=== PATIENT | female | born 1980 | race Caucasian/White ===

== ENCOUNTER → 2016-04-18 | Outpatient (CLI) | payer OTHER ==
[~2016-04-18] MED LIST: MTR600X PO; OXYC-57 PO; PRENTAB26 PO
[2016-04-18 18:33] LABS: GTGD 50 Grams
== END | disposition home or self-care (01) ==
LOC: C.LAB1850 15:14
PROVIDERS: ATTEND Obstetrics & Gynecology
DX: O30.043 Twin pregnancy, dichorionic/diamniotic, third trimester (principal)

== ENCOUNTER → 2016-04-18 | Outpatient (CLI) | payer OTHER ==
[2016-04-18 17:07] LABS: MANUAL MICROSCOPIC REQUIRED? YES; REVIEW REQ? NO; URINE APPEARANCE SL CLOUDY (CLEAR); URINE BILIRUBIN NEG (NEG); URINE COLOR YELLOW; URINE NITRITE NEG (NEG); URINE SPECIFIC GRAVITY 1.025 (1.000-1.030); UROBILINOGEN NEG (NEG)
[2016-04-18 17:09] LABS: URINE BACTERIA 1+ (NEG); URINE MUCUS PRESENT (NONE PRSENT); URINE RBC 0-4 /hpf (0-4)
== END | disposition home or self-care (01) ==
LOC: C.LABSPEC 15:50
PROVIDERS: ATTEND Obstetrics & Gynecology
DX: O30.043 Twin pregnancy, dichorionic/diamniotic, third trimester (principal)

== ENCOUNTER 2016-05-16 14:10 | Outpatient (CLI) | payer OTHER ==
[~2016-05-16] VITALS: Ht 165.1 cm; Wt 79.4 kg
[2016-05-16] MEDS ORDERED: PRENTAB26 PO (15:01)
[2016-05-16 15:07] VITALS: Ht 165.1 cm; Wt 79.4 kg
== END 2016-05-16 14:49 | disposition home or self-care (01) ==
LOC: C.LD 14:10 → C.OPB 14:10
PROVIDERS: ATTEND Obstetrics & Gynecology
DX: O30.043 Twin pregnancy, dichorionic/diamniotic, third trimester (principal); Z3A.32 32 weeks gestation of pregnancy

== ENCOUNTER 2016-05-23 14:11 | Observation (INO) | payer OTHER ==
[~2016-05-23] VITALS: Ht 167.6 cm; Wt 80.0 kg
[~2016-05-23 14:11] MED LIST changes: -MTR600X PO; -OXYC-57 PO
[2016-05-23] MEDS: LACTATED RINGER'S 1000ML 1,000 ML IV SCH ×2 (14:35→15:30)
[2016-05-23] MEDS ORDERED: IV FLUIDS COMPLETED PRN (15:45)
[2016-05-23 16:20] VITALS: Ht 167.6 cm; Wt 80.0 kg
[2016-05-23 16:47] LABS: URINE APPEARANCE CLEAR (CLEAR); URINE BILIRUBIN NEG (NEG); URINE COLOR YELLOW; URINE NITRITE NEG (NEG); URINE SPECIFIC GRAVITY 1.011 (1.000-1.030); UROBILINOGEN NEG (NEG)
[2016-05-23 16:50] LABS: MANUAL MICROSCOPIC REQUIRED? NO; REVIEW REQ? NO
--- NOTE | 2016-05-31 14:44 | DISCHARGE SUMMARY ---
REASON FOR ADMISSION: contractions. COURSE OF CARE: Ms. Das was admitted for a twin intrauterine at 33 weeks gestational age after being seen in the office and complaining of painful regular cramping. She was observed on labor and delivery while a fibronectin test was run which ultimately resulted as negative. She was noted to have ketonuria and was likely dehydrated, which the patient felt was consistent with her expectations after working during the day without much if any oral fluid intake. She was given IV hydration. Her cramping calmed significantly, no cervical change was demonstrated over the course of several hours and the patient was ultimately discharged to home.
== END 2016-05-23 16:30 | disposition home or self-care (01) ==
LOC: C.OPB 14:11 → C.LD 14:11 → C.OPB 14:33 → C.LD 14:33
PROVIDERS: ADMIT Obstetrics & Gynecology; ATTEND Obstetrics & Gynecology
DX: O62.9 Abnormality of forces of labor, unspecified (principal); O30.003 Twin pregnancy, unspecified number of placenta and unspecified number of amniotic sacs, third trimester; Z3A.33 33 weeks gestation of pregnancy

== ENCOUNTER 2016-05-30 16:06 | Outpatient (CLI) | payer OTHER ==
--- NOTE | 2016-06-07 13:11 | EDITING REQUIRED CODING QUERY ---
DIAGNOSIS NEEDED To promote full compliance with coding requirements relating to patient care, physician participation is requested in all cases of bleach liquor maker uncertainty. Please assist us with the question(s) below: Coding Question: The patient received care in labor and delivery on 05/30/16 as noted within the record. Please document the diagnosis that is being addressed by the medication/treatment. Provider Response: DIAGNOSIS: Twins NST, 35 weeks Thank you for your assistance, Telma Becker - Marketing Professional
[2016-07-01] MEDS ORDERED: OXYC-57 PO (07:48)
[2016-07-01] MEDS ORDERED: MTR600X PO (07:48)
== END 2016-05-30 17:40 | disposition home or self-care (01) ==
LOC: C.OPB 16:06 → C.LD 16:06 → C.OPB 17:40
PROVIDERS: ATTEND Obstetrics & Gynecology
DX: O30.093 Twin pregnancy, unable to determine number of placenta and number of amniotic sacs, third trimester (principal); Z3A.35 35 weeks gestation of pregnancy

== ENCOUNTER 2016-06-08 16:37 | Outpatient (CLI) | payer OTHER ==
[~2016-06-08 16:37] MED LIST changes: -MTR600X PO; -OXYC-57 PO
== END 2016-06-08 17:17 | disposition home or self-care (01) ==
LOC: C.OPB 16:37 → C.LD 16:37 → C.OPB 17:17
PROVIDERS: ATTEND Obstetrics & Gynecology
DX: O30.043 Twin pregnancy, dichorionic/diamniotic, third trimester (principal); Z3A.35 35 weeks gestation of pregnancy

== ENCOUNTER → 2016-06-08 | Outpatient (CLI) | payer OTHER ==
[~2016-06-08] MED LIST changes: +MTR600X PO; +OXYC-57 PO
== END | disposition home or self-care (01) ==
LOC: C.LABSPEC 17:45
PROVIDERS: ATTEND Obstetrics & Gynecology
DX: O30.043 Twin pregnancy, dichorionic/diamniotic, third trimester (principal); Z3A.00 Weeks of gestation of pregnancy not specified

== ENCOUNTER 2016-06-13 19:21 | Outpatient (CLI) | payer OTHER | END 2016-06-13 19:42 | disposition home or self-care (01) | LOC: C.LD 19:21 → C.OPB 19:21 → C.LD 19:34 → C.OPB 19:42 | PROVIDERS: ATTEND Obstetrics & Gynecology | DX: O30.043 Twin pregnancy, dichorionic/diamniotic, third trimester (principal); Z3A.36 36 weeks gestation of pregnancy ==

== ENCOUNTER 2016-06-15 14:56 | Outpatient (CLI) | payer OTHER ==
[2016-06-15 15:55] LABS: HEMATOCRIT 34.2 % (37-47); MEAN CELL VOLUME 84.7 fL (80-100); MEAN CORPUSCULAR HGB CONC 34.2 g/dl (32-36); MEAN PLATELET VOLUME 11.2 fL (7.4-10.4); PLATELET COUNT 232 K/uL (130-400); RED BLOOD COUNT 4.04 M/uL (4.2-5.4); WHITE BLOOD COUNT 8.68 K/uL (4.8-10.8)
[2016-06-15 16:24] LABS: ALT/SGPT 19 U/L (12-78); AST/SGOT 18 U/L (15-37); BLOOD UREA NITROGEN 8 mg/dl (7-18); BUN/CREATININE RATIO 12.5 (10-20); CALCIUM 8.7 mg/dl (8.5-10.1); CARBON DIOXIDE 23 mmol/L (21-32); CHLORIDE 108 mmol/L (98-107); CREATININE 0.64 mg/dl (0.60-1.20); GLUCOSE 73 mg/dl (70-99); POTASSIUM 3.7 mmol/L (3.5-5.1); SODIUM 140 mmol/L (136-145)
[2016-06-15 16:30] LABS: ALB/GLOB RATIO 0.6 (0.9-2); ALKALINE PHOSPHATASE 195 U/L (45-117); URIC ACID 5.5 mg/dl (2.6-7.2)
[2016-06-15 17:48] LABS: URINE PROTIEN/CREAT RATIO 0.1 (0-0.2); URINE TOTAL PROTEIN 16.7 mg/dl (0-11.9)
== END 2016-06-15 16:58 | disposition home or self-care (01) ==
LOC: C.OPB 14:56 → C.LD 14:56 → C.OPB 16:58
PROVIDERS: ATTEND Obstetrics & Gynecology
DX: O62.9 Abnormality of forces of labor, unspecified (principal); O12.13 Gestational proteinuria, third trimester; O99.89 Other specified diseases and conditions complicating pregnancy, childbirth and the puerperium; R03.0 Elevated blood-pressure reading, without diagnosis of hypertension; O30.043 Twin pregnancy, dichorionic/diamniotic, third trimester; Z3A.36 36 weeks gestation of pregnancy

== ENCOUNTER 2016-06-18 11:24 | Outpatient (CLI) | payer OTHER ==
[~2016-06-18 11:24] MED LIST changes: -MTR600X PO; -OXYC-57 PO
--- NOTE | 2016-06-26 11:15 | EDITING REQUIRED CODING QUERY ---
DIAGNOSIS NEEDED To promote full compliance with coding requirements relating to patient care, physician participation is requested in all cases of sewing machine operator paper bags uncertainty. Please assist us with the question(s) below: Coding Question: The patient received care in labor and delivery on 06/18/16 as noted within the record. Please document the diagnosis that is being addressed by the medication/treatment. Provider Response: DIAGNOSIS: Twin third trimester Nst x2 Thank you for your assistance, Telma Becker - Homicide Detective
== END 2016-06-18 13:30 | disposition home or self-care (01) ==
LOC: C.LD 11:24 → C.OPB 11:24
PROVIDERS: ATTEND Obstetrics & Gynecology
DX: O30.049 Twin pregnancy, dichorionic/diamniotic, unspecified trimester (principal); Z3A.36 36 weeks gestation of pregnancy

== ENCOUNTER → 2016-06-18 | Outpatient (CLI) | payer OTHER ==
[~2016-06-18] MED LIST changes: +MTR600X PO; +OXYC-57 PO
[2016-06-18 08:18] LABS: PATIENT HEIGHT 167.6 cm
[2016-06-18 12:21] LABS: URINE TOTAL PROTEIN 10.4 mg/dl (0-11.9)
[2016-06-18 12:57] LABS: CREATININE 0.65 mg/dl (0.6-1.2)
[2016-06-18 13:00] LABS: URINE TOTAL PROTEIN CALC 140.4 mg/24 hr (0-149.1)
== END | disposition home or self-care (01) ==
LOC: C.LABSPEC 07:05
PROVIDERS: ATTEND Obstetrics & Gynecology
DX: O13.3 Gestational [pregnancy-induced] hypertension without significant proteinuria, third trimester (principal); Z3A.00 Weeks of gestation of pregnancy not specified

== ENCOUNTER 2016-06-20 17:16 | Outpatient (CLI) | payer OTHER ==
[~2016-06-20] VITALS: Ht 167.6 cm; Wt 84.0 kg
[2016-06-20 17:54] VITALS: Ht 167.6 cm; Wt 84.0 kg
--- NOTE | 2016-06-26 11:50 | EDITING REQUIRED CODING QUERY ---
DIAGNOSIS NEEDED To promote full compliance with coding requirements relating to patient care, physician participation is requested in all cases of street commissioner uncertainty. Please assist us with the question(s) below: Coding Question: The patient received care in labor and delivery on 06/20/16 as noted within the record. Please document the diagnosis that is being addressed by the medication/treatment. Provider Response: DIAGNOSIS: Twin Thank you for your assistance, Telma Becker - Margarine Maker
== END 2016-06-20 17:57 | disposition home or self-care (01) ==
LOC: C.OPB 17:16 → C.LD 17:16 → C.OPB 17:57
PROVIDERS: ATTEND Obstetrics & Gynecology
DX: O30.043 Twin pregnancy, dichorionic/diamniotic, third trimester (principal); O09.513 Supervision of elderly primigravida, third trimester; Z3A.37 37 weeks gestation of pregnancy

== ENCOUNTER 2016-06-25 13:10 | Outpatient (CLI) | payer OTHER | END 2016-06-25 14:30 | disposition home or self-care (01) | LOC: C.OPB 13:10 → C.LD 13:10 → C.OPB 14:30 | PROVIDERS: ATTEND Obstetrics & Gynecology | DX: O30.043 Twin pregnancy, dichorionic/diamniotic, third trimester (principal); Z3A.38 38 weeks gestation of pregnancy ==

== ENCOUNTER 2016-06-28 01:04 | Inpatient (IN) | payer OTHER ==
[2016-06-27 10:08] VITALS: BMI 29.0
--- NOTE | 2016-06-27 10:22 | PAT Medication Instructions ---
Service Date June 27, 2016. Current Home Medication List Multivit/Min/Iron/Fol Ac/Pren ( Vitamin), 1 TAB PO DAILY Medication Instructions For Your Scheduled Surgery - Hold the following medications the morning of surgery: Multivit/Min/Iron/Fol Ac/Pren ( Vitamin), 1 TAB PO DAILY If you have any questions please call us at [phone] (Rosalva Larsen PA-C) or [phone] or [phone]
[2016-06-27 10:48] LABS: BASO % 0.1 %; BASO ABS # 0.01 K/uL (0-0.2); COMPLETE YES; EOS % 0.5 %; HEMATOCRIT 33.5 % (37-47); IG% 0.4 %; LYMPH % 19.8 %; LYMPH ABS # 1.47 K/uL (1.2-3.4); MEAN CORPUSCULAR HEMOGLOBIN 28.1 pg (25-34); MEAN CORPUSCULAR HGB CONC 33.4 g/dl (32-36); MEAN PLATELET VOLUME 11.7 fL (7.4-10.4); MONO % 7.4 %; NEUT % 71.8 %; PLATELET COUNT 171 K/uL (130-400); RED BLOOD COUNT 3.99 M/uL (4.2-5.4); WHITE BLOOD COUNT 7.41 K/uL (4.8-10.8)
--- NOTE | 2016-06-27 12:34 | HISTORY & PHYSICAL EXAMINATION ---
DATE OF ADMISSION: 06/28/2016 PREOPERATIVE DIAGNOSIS: Dichorionic/diamniotic twin intrauterine at 38 and 2/7th weeks. HISTORY OF PRESENT ILLNESS: Carlota is a 36-year-old white female 1, para 0 with an EDC of 07/10/2016 based on last menstrual period and first trimester ultrasound, who has been diagnosed with di/di twins. Her has essentially been uncomplicated. The twins have been growing well. She has had reactive nonstress test. She did have an episode of elevated blood pressure, but at about 36 weeks her workup for preeclampsia was negative. The patient has advanced maternal age and appears she declined her genetic testing. PAST OB AND COIL WINDER REPAIR HISTORY: This is the patient's first . ALLERGIES: CODEINE DERIVATIVES. MEDICATIONS: vitamin. PAST MEDICAL HISTORY: She is healthy, denying thyroid disease, asthma, heart disease, heart murmur, diabetes, kidney or liver problems. She had a chickenpox in the past. PAST SURGICAL HISTORY: Includes wisdom teeth removal. SOCIAL HISTORY: The patient denies tobacco, alcohol or drug use. She lives with her spouse. PHYSICAL EXAMINATION: GENERAL: This is a well-developed and well-nourished white female in no acute distress. VITAL SIGNS: Blood pressure 120/70 and weight 180 pounds. NECK: Supple without thyromegaly or lymphadenopathy. CHEST: Clear to auscultation bilaterally. CARDIOVASCULAR: Regular rate and rhythm without murmurs, gallops or rubs. BACK: Without costovertebral angle tenderness. ABDOMEN: Very gravid and nontender. EXTREMITIES: Showed 2+ pitting edema to the thigh. CERVIX: Deferred. On ultrasound, baby A, which is the left baby is in annita breech presentation and baby B, which is in the upper right quadrant, is transverse. LABORATORY DATA: O positive, antibody negative, Pap normal, rubella immune, RPR nonreactive, hepatitis B negative, HIV negative, and chlamydia and gonorrhea cultures negative. Glucose tolerance test x2 normal. GBS negative. ASSESSMENT: Carlota is a 36-year-old white female 1, para 0 with dichorionic/diamniotic twin at 38 and 2/7th weeks. She presents for section. The risks of the surgery were discussed with the patient including the risks of anesthesia, bleeding requiring transfusion, infection and poor wound healing, damage to surrounding structures including bowel, bladder, vessels, nerves and ureters with need for further surgery, hospitalization or intervention. We discussed the other risks of surgery including heart attack, blood clot, stroke or . Questions were asked and answered. Consent was reviewed and signed. Surgery is planned for June 28.
[~2016-06-28] VITALS: Ht 167.6 cm; Wt 83.0 kg
[2016-06-28] VITALS (23 sets, daily range): BP systolic 116–171; BP diastolic 74–93; PULSE 55–76; TEMP 36.3–36.9; O2SAT 95–99; Ht 167.6 cm; Wt 83.0 kg
[2016-06-28] MEDS ORDERED: OXYTOCIN INJ 10 UNITS/ML VIAL ONE (02:14)
[2016-06-28] MEDS ORDERED: FENTANYL CITRATE INJ 50 MCG/1 ML 2 ML VIAL ONE (02:14)
[2016-06-28] MEDS ORDERED: PHENYLEPHRINE HCL INJ 10 MG/ML VIAL ONE (02:14)
[2016-06-28] MEDS ORDERED: MoRPHine SULFATE PF 1 MG/ML 10 ML AMP/VIAL ONE (02:14)
[2016-06-28] MEDS ORDERED: ONDANSETRON INJ 2 MG/ML 2 ML VIAL ONE ×2 (02:14→03:26)
[2016-06-28] MEDS ORDERED: EpHEDrine SULFATE INJ 50 MG/ML AMP ONE (02:17)
--- NOTE | 2016-06-28 02:38 | History & Physical Bridge Note ---
H&P Re-Evaluation Bridge Note: I have examined the patient, reviewed the History & Physical and in the interval since the performance of the History & Physical I have noted the following changes of clinical significance: Patient with SROM, fluid clear, Cervix /-2, Pt consented for C/S, will proceed.
[2016-06-28] MEDS ORDERED: CITRIC ACID/SODIUM CITRATE 15 ML UDC PO STA (02:45)
[2016-06-28] MEDS ORDERED: CITRIC ACID/SODIUM CITRATE 15 ML UDC ONE (02:46)
[2016-06-28] MEDS ORDERED: LACTATED RINGER'S 1000ML 1,000 ML IV SCH ×4 (03:00→06:00)
[2016-06-28] MEDS ORDERED: DEXAMETHASONE SOD INJ 4 MG/ML VIAL ONE (03:27)
[2016-06-28] MEDS ORDERED: DC PCA PRN (03:30)
[2016-06-28] MEDS ORDERED: HYDROCORTISONE ACETATE 25 MG SUPP PR PRN (03:30)
[2016-06-28] MEDS ORDERED: SUPERCREAM 0.870 % 15GM JAR EXT PRN (03:30)
[2016-06-28] MEDS ORDERED: LANOLIN OINT EXT PRN ×2 (03:30)
[2016-06-28] MEDS ORDERED: DIPHTHERIA/TETANUS/PERTUSSIS 0.5 ML SYR/VIAL IM. ONE (03:30)
[2016-06-28] MEDS ORDERED: OXYTOCIN INJ 20 UNITS in LACTATED RINGER'S 1000ML 1,000 ML IV SCH (03:30)
[2016-06-28] MEDS ORDERED: BENZOCAINE 20% AER SPR 82.5 GM CAN EXT PRN (03:30)
--- NOTE | 2016-06-28 03:56 | [facility] Post Operative Brief Note ---
Immediate Operative Summary Operative Date June 28, 2016. Pre-Operative Diagnosis 1) TWIN 2) RUPTURE OF MEMBRANES 3) bREECH/VTX PRESENTATION Post-Operative Diagnosis SAME ABOVE Procedure(s) Performed PRIMARY CAESAREAN SECTION FOR TWIN GESTATION BABY A-4 BABY B [address] SABILLON Mosaic Layer Surgeon(s) DR PENNINGTON Estimated Blood Loss 800 Findings Viable twin gestation, baby A, delivered by annita breech, Apgars 8/9; weight 6lbs 5 oz, gasses pending, Baby B, delivered vtx, weight 6lbs 7 ozs, gasses pending, placenta delivered and sent for pathological evaluation, nml appearing tubes and ovaries bilaterally, posterior subserosal fibroids Fluids (cc crystalloids) 1200 Specimens 1) PLACENTA 2) cord gasses Drains Fitch to gravity Anesthesia Spinal Complication(s) None Disposition L&D
[2016-06-28] MEDS ORDERED: SODIUM CHLORIDE 0.9% 1000ML 1,000 ML IV PRN (04:06)
[2016-06-28] MEDS ORDERED: LACTATED RINGER'S 1000ML 500 ML IV PRN (04:06)
[2016-06-28] MEDS ORDERED: NALOXONE HCL INJ 0.08 MG in SYRINGE 1.8 ML IV PRN (04:06)
--- NOTE | 2016-06-28 04:09 | Anesthesiology Progress Note ---
Anesthesia Post Op Note Date & Time June 28, 2016 at 04:08 Notes Mental Status: alert / awake / arousable, participated in evaluation Pt Amnestic to Procedure: No (recall as expected) Nausea / Vomiting: adequately controlled Pain: adequately controlled Airway Patency, RR, SpO2: stable & adequate BP & HR: stable & adequate Hydration State: stable & adequate Neuraxial Anesthesia: was administered, sensory block is resolving Anesthetic Complications: no major complications apparent Pt had C/S under spinal. She's doing very well. Uneventful anesthetic course. Post-op vitals BP 148/74, HR 62, RR 18, SpO2 99% on RA, T 36.3.
[2016-06-28] MEDS ORDERED: MoRPHine SULFATE 2 MG/ML CARP IV PRN (04:15)
[2016-06-28] MEDS ORDERED: PROMETHAZINE HCL INJ 25 MG in SODIUM CHLORIDE 0.9% 50ML 50 ML IV PRN (04:15)
[2016-06-28] MEDS ORDERED: KETOROLAC TROMETHAMINE 30 MG/ML VIAL IV. PRN ×2 (04:15→21:00)
[2016-06-28] MEDS ORDERED: DC INTRASPINAL MORPHINE SCH (04:15)
[2016-06-28] MEDS ORDERED: NO NARCOTICS OR SEDATIVES SCH (04:15)
[2016-06-28] MEDS ORDERED: NALBUPHINE HCL INJ 10 MG/ML AMP IV PRN (04:15)
[2016-06-28] MEDS ORDERED: EpHEDrine SULFATE INJ 50 MG/ML AMP IV PRN (04:15)
[2016-06-28] MEDS ORDERED: ONDANSETRON INJ 2 MG/ML 2 ML VIAL IV PRN (04:15)
[2016-06-28] MEDS ORDERED: MEPERIDINE HCL 25 MG/ML CARP IV PRN (04:15)
[2016-06-28] MEDS ORDERED: DiphenhydrAMINE HCL 50 MG/ML VIAL IV PRN ×2 (04:15→20:00)
[2016-06-28] MEDS ORDERED: NALOXONE HCL 0.4 MG/1 ML VIAL/CARP IV PRN (04:15)
[2016-06-28] MEDS ORDERED: MoRPHine SULFATE PF 1 MG/ML 10 ML AMP/VIAL EPI PRN (04:15)
[2016-06-28] MEDS ORDERED: CEFAZOLIN 2000 MG/60 ML D5W IV SCH (06:00)
[2016-06-28] MEDS ORDERED: CITRIC ACID/SODIUM CITRATE 15 ML UDC PO SCH (06:00)
--- NOTE | 2016-06-28 07:33 | OPERATIVE REPORT ---
DATE OF OPERATION: 06/28/2016 PREOPERATIVE DIAGNOSES: 1. Twin . 2. Spontaneous rupture of membranes. 3. Breech vertex presentation. POSTOPERATIVE DIAGNOSES: 1. Same. 2. Posterior subserosal fibroids. PROCEDURE PERFORMED: Primary low cervical transverse section. SURGEON: Dr. Ramon. DETENTION OFFICER: Dr. Faiza Castro. ANESTHESIA: Spinal. FINDINGS: Viable twin gestation. Baby A delivered from a annita breech presentation, Apgars of 8 and 9 and a weight of 6 pounds 5 ounces. Baby B was delivered from a vertex presentation, a weight of 6 pounds 7 ounces, Apgars of 8 and 9. Cord gases pending. Subserosal posterior fibroids noted, normal appearing tubes and ovaries bilaterally. PROCEDURE IN DETAIL: The patient was taken to the operating room and after spinal anesthesia was placed in supine position and draped and prepped in the usual fashion. Pfannenstiel type incision was made. Underlying subcutaneous tissue was dissected down to the ventral abdominal fascia, which was nicked and opened in a horizontal manner. Preperitoneal fascia was dissected away until the peritoneal cavity was entered and opened in a vertical manner. Bladder blade was placed. Uterus was entered sharply and extended in a semilunar fashion manually for clear fluid. Baby A delivered from a annita breech presentation. Cord was clamped and cut and baby passed off to pediatrics who was in attendance for the delivery. Cord blood samples were obtained. Baby B delivered spontaneously from a vertex presentation. Cord was clamped and cut and baby passed off to pediatrics. Cord blood samples obtained. Cord gas samples obtained from both babies and then the placenta was delivered manually and sent for pathological evaluation. The uterus was exteriorized with description as above. The uterine cavity was wiped clean of any residual blood tissue and/or clot. The uterine incision was closed with 2 layers of 4-0 Vicryl, the first a running locking stitch, the second an imbricating stitch. Hemostasis achieved and the uterus returned to the pelvic cavity. Pericolic gutters were cleared bilaterally of blood tissue and/or clot. Sponge and needle count was correct. The rectus muscle was plicated in the midline with a running 2-0 Vicryl stitch. The fascia was closed laterally with a running 0 Vicryl suture. Subcutaneous tissue was irrigated with warm saline and the skin incision was closed with a 4-0 Monocryl subcuticular suture. Sterile dressing was applied and the patient was taken to the recovery room in satisfactory condition. I attest to the content of the Intraoperative Record and any orders documented therein. Any exceptio ns are noted below.
[2016-06-28] MEDS: SIMETHICONE 80 MG CHEW PO SCH ×4 (09:07→20:00)
[2016-06-28] MEDS: PRENATAL VITAMIN TAB PO SCH (09:07)
[2016-06-28] MEDS ORDERED: OXYCODONE/ACETAMINOPHEN 5-325 TAB PO PRN (21:00)
[2016-06-28] MEDS ORDERED: MEPERIDINE HCL 50 MG/ML CARP IV PRN ×2 (21:00)
[2016-06-28] MEDS: OXYCODONE/ACETAMINOPHEN 5-325 TAB PO PRN (21:23)
[2016-06-29 04:50] VITALS: BP 147/83; PULSE 71; TEMP 36.9; O2SAT 98
[2016-06-29 05:20] VITALS: BP 133/80
[2016-06-29] MEDS: IBUPROFEN 600 MG TAB PO PRN ×4 (05:25→21:43)
[2016-06-29 07:04] LABS: HEMATOCRIT 27.3 % (37-47); MEAN CELL VOLUME 85.6 fL (80-100); MEAN CORPUSCULAR HEMOGLOBIN 28.5 pg (25-34); MEAN CORPUSCULAR HGB CONC 33.3 g/dl (32-36); MEAN PLATELET VOLUME 11.3 fL (7.4-10.4); PLATELET COUNT 148 K/uL (130-400); RED BLOOD COUNT 3.19 M/uL (4.2-5.4); WHITE BLOOD COUNT 10.56 K/uL (4.8-10.8)
--- NOTE | 2016-06-29 07:22 | Progress Note ---
Subjective June 29, 2016. Subjective conversation w/ patient, physical exam, lab review Ambulation: ambulating normally Voiding: requires PRN straight cath, voiding difficulty Passing Gas: Yes Diet Tolerance: Regular Diet Lochia: Small Feeding Type: Breast Feeding Pain: improves with med Comment: Patient was seen at the bedside. No acute event overnight. Review of Systems Constitutional: No fever Respiratory: No cough, No shortness of breath Cardiac: No chest pain Abdomen: No nausea, No pain, No vomiting Female : No dysuria Denies headache Objective Vital Signs Date Time Temp Pulse Resp B/P Pulse Ox O2 Delivery O2 Flow Rate FiO2 06/29/16 05:20 133/80 06/29/16 04:50 36.9 71 18 147/83 98 Room Air 06/28/16 23:10 Room Air 06/28/16 23:10 36.8 71 16 122/78 95 Room Air 06/28/16 21:00 18 98 06/28/16 20:15 16 97 06/28/16 19:55 36.6 69 18 125/75 96 Room Air 06/28/16 19:15 18 96 06/28/16 18:15 18 96 06/28/16 17:15 16 97 06/28/16 16:35 96 Room Air 06/28/16 16:35 36.9 76 18 116/74 96 Room Air 06/28/16 16:15 18 96 06/28/16 15:15 18 96 06/28/16 14:15 16 96 06/28/16 13:30 16 98 06/28/16 13:15 16 98 06/28/16 12:15 16 98 06/28/16 11:55 36.3 58 14 152/91 97 Room Air 06/28/16 11:15 16 97 06/28/16 10:15 16 97 06/28/16 09:15 36.4 60 16 139/85 99 Room Air 06/28/16 09:15 16 98 06/28/16 08:15 36.5 55 16 147/81 99 Room Air 06/28/16 08:15 16 99 06/28/16 07:50 16 98 06/28/16 07:50 98 Room Air 06/28/16 07:30 36.3 60 16 157/93 98 Room Air Physical Exam General Appearance: WELL-APPEARING, WD/WN, NO APPARENT DISTRESS Respiratory/Chest: chest non-tender, lungs clear, normal breath sounds, no respiratory distress Cardiovascular: regular rate, rhythm Abdomen: normal bowel sounds, non tender, soft Fundus: Firm, Relation to Umbilicus (at the U) Incision Description: Clean, Dry & Intact Extremities: non-tender, no calf tenderness, + pedal edema (1+ b/l pedal edema) Laboratory Results Last 24 Hours Test 06/29/16 06:45 White Blood Count 10.56 K/uL Red Blood Count 3.19 M/uL Hemoglobin 9.1 g/dL Hematocrit 27.3 % Mean Corpuscular Volume 85.6 fL Mean Corpuscular Hemoglobin 28.5 pg Mean Corpuscular Hemoglobin Concent 33.3 g/dl Platelet Count 148 K/uL Mean Platelet Volume 11.3 fL RDW Standard Deviation 40.9 fL RDW Coefficient of Variation 13.3 % Medications Current Inpatient Medications Medications (Trade) Dose Ordered Sig/Shila Route Start Time Stop Time Status Last Admin Dose Admin Lactated Ringer's (Lr 1000ml) 1,000 ml @ 125 mls/hr Q8H IV 06/28/16 03:30 07/28/16 03:29 06/28/16 12:59 125 MLS/HR Ketorolac Tromethamine (Toradol Inj) 30 mg Q6H PRN IV. 06/28/16 21:00 07/03/16 20:59 Meperidine HCl (Demerol Inj) 50 mg Q4H PRN IV 06/28/16 21:00 07/12/16 20:59 Meperidine HCl (Demerol Inj) 75 mg Q4H PRN IV 06/28/16 21:00 07/12/16 20:59 Oxycodone/ Acetaminophen (Percocet 5-325mg Tab) 1 tab Q4H PRN PO 06/28/16 21:00 07/12/16 20:59 06/28/16 21:23 1 TAB Oxycodone/ Acetaminophen (Percocet 5-325mg Tab) 2 tab Q4H PRN PO 06/28/16 21:00 07/12/16 20:59 Ibuprofen (Motrin Tab) 600 mg Q4H PRN PO 06/28/16 03:30 07/28/16 03:29 06/29/16 05:25 600 MG Prenat Multivit/ Shopping Centre Manager/Iron/Folic Ac ( Vitamin Tab) 1 tab DAILY PO 06/28/16 08:00 07/28/16 07:59 06/28/16 09:07 1 TAB Cocaine HCl (Supercream 0.870% Cr) BID PRN EXT 06/28/16 03:30 07/12/16 03:29 Lanolin (Lanolin Oint) PRN PRN EXT 06/28/16 03:30 07/28/16 03:29 Hydrocortisone Acetate (Anusol Hc Supp) 25 mg BID PRN MO 06/28/16 03:30 07/28/16 03:29 Benzocaine (Dermoplast Aero Spr) 1 appln PRN PRN EXT 06/28/16 03:30 07/28/16 03:29 Simethicone (Mylicon Chew Tab) 80 mg QID PO 06/28/16 08:00 07/28/16 08:59 06/28/16 16:42 80 MG Diphenhydramine HCl (Benadryl Cap) 25 mg QID PRN PO 06/28/16 20:00 07/28/16 20:59 Diphenhydramine HCl (Benadryl Inj) 25 mg QID PRN IV 06/28/16 20:00 07/28/16 20:59 Morphine Sulfate (Duramorph Pf Inj) TODAY PRN EPI 06/28/16 04:15 Assessment and Plan Post-Op Day#: 1 Continue Routine Care: A/P: This is a 36 y/o female, , s/p . She is ambulating, having voiding difficulty. Plan: - Vitals signs are reviewed and WNL (Tmax 36.9 ) - Last Hgb is 9.2 - Blood type O+, GBS neg, Rubella Immune - Routine care - Encourage ambulation, monitor and control pain with medication as needed , continue with regular diet as tolerated and monitor lochia - Stool softeners and sitz bath recommended - Encourage breast feeding and educate about breast feeding Resident Physician Supervision Note: I interviewed and examined the patient. Discussed with Dr. Burkett and agree with findings and plan as documented in the note. Any exceptions or clarifications are listed here: Was unable to void and straight cath for 1200cc. Has tried again and not able. Do not want to wait 8 hours again. Plan cath with oropeza at 10 am(5 hrs), maintain overnight if large PVR. Documented By: Faiza Castro
[2016-06-29] MEDS: PRENATAL VITAMIN TAB PO SCH (07:33)
[2016-06-29] MEDS: SIMETHICONE 80 MG CHEW PO SCH ×4 (07:33→20:34)
[2016-06-29 07:47] LABS: BASO % 0.2 %; BASO ABS # 0.02 K/uL (0-0.2); COMPLETE YES; EOS % 0.3 %; IG% 0.5 %; LYMPH % 17.9 %; LYMPH ABS # 1.89 K/uL (1.2-3.4); MONO % 6.8 %; NEUT % 74.3 %
[2016-06-29 08:30] VITALS: BP 122/77; PULSE 74; TEMP 36.9; O2SAT 95
[2016-06-29] MEDS ORDERED: NURSING VERBAL MED ORDER ONE (12:45)
[2016-06-29] MEDS: OXYCODONE/ACETAMINOPHEN 5-325 TAB PO PRN ×2 (12:57→21:44)
[2016-06-29] MEDS: ONDANSETRON 8 MG TAB PO PRN ×2 (12:59→21:42)
[2016-06-29 15:45] VITALS: O2SAT 93
[2016-06-30] VITALS: BP 122/77; PULSE 71; TEMP 36.6
--- NOTE | 2016-06-30 06:44 | Progress Note ---
Subjective June 30, 2016. Subjective conversation w/ patient, physical exam, chart review Ambulation: ambulating normally Voiding: no voiding problems, requires PRN straight cath, voiding difficulty Passing Gas: Yes Diet Tolerance: Regular Diet Lochia: Moderate Feeding Type: Breast Feeding (with supplemental bottles now) Review of Systems Constitutional: No chills, No fever Respiratory: No cough Cardiac: No chest pain Abdomen: No nausea, No vomiting Objective Vital Signs Date Time Temp Pulse Resp B/P Pulse Ox O2 Delivery O2 Flow Rate FiO2 06/30/16 00:00 Room Air 06/30/16 00:00 36.6 71 16 122/77 Room Air 06/29/16 15:45 93 Room Air 06/29/16 08:30 36.9 74 18 122/77 95 Room Air 06/29/16 08:30 95 Room Air Physical Exam General Appearance: WELL-APPEARING, NO APPARENT DISTRESS Respiratory/Chest: chest non-tender, lungs clear, normal breath sounds, no respiratory distress, no accessory muscle use Cardiovascular: regular rate, rhythm, no gallop, no murmur Abdomen: non tender, soft Fundus: Firm Incision Description: Clean, Dry & Intact Extremities: no calf tenderness Laboratory Results Last 24 Hours Test 06/29/16 06:45 06/30/16 06:15 White Blood Count 10.56 K/uL Red Blood Count 3.19 M/uL Hemoglobin 9.1 g/dL 9.3 g/dL Hematocrit 27.3 % 28.0 % Mean Corpuscular Volume 85.6 fL Mean Corpuscular Hemoglobin 28.5 pg Mean Corpuscular Hemoglobin Concent 33.3 g/dl Platelet Count 148 K/uL Mean Platelet Volume 11.3 fL Neutrophils (%) (Auto) 74.3 % Lymphocytes (%) (Auto) 17.9 % Monocytes (%) (Auto) 6.8 % Eosinophils (%) (Auto) 0.3 % Basophils (%) (Auto) 0.2 % Neutrophils # (Auto) 7.85 K/uL Lymphocytes # (Auto) 1.89 K/uL Monocytes # (Auto) 0.72 K/uL Eosinophils # (Auto) 0.03 K/uL Basophils # (Auto) 0.02 K/uL RDW Standard Deviation 40.9 fL RDW Coefficient of Variation 13.3 % Immature Granulocyte % (Auto) 0.5 % Immature Granulocyte # (Auto) 0.05 K/uL Assessment and Plan Post-Op Day#: 2 Continue Routine Care: Recovering well from c/sec for twins. Wishes to stay until POD3 and go home tomorrow AM.
[2016-06-30 08:05] VITALS: BP 136/87; PULSE 71; TEMP 36.7; O2SAT 96
[2016-06-30] MEDS: ONDANSETRON 8 MG TAB PO PRN (08:18)
[2016-06-30] MEDS: PRENATAL VITAMIN TAB PO SCH (08:29)
[2016-06-30] MEDS: SIMETHICONE 80 MG CHEW PO SCH ×4 (08:29→20:45)
[2016-06-30] MEDS: OXYCODONE/ACETAMINOPHEN 5-325 TAB PO PRN (08:31)
[2016-06-30] MEDS: IBUPROFEN 600 MG TAB PO PRN ×4 (08:31→20:45)
[2016-06-30] MEDS: DOCUSATE SODIUM 100 MG CAP PO SCH ×2 (09:37→20:45)
[2016-06-30 15:30] VITALS: BP 121/78; PULSE 71; TEMP 36.4
[2016-06-30 23:35] VITALS: BP 129/76; PULSE 63; TEMP 36.6
[2016-07-01] MEDS: IBUPROFEN 600 MG TAB PO PRN ×2 (05:47→12:44)
[2016-07-01 07:15] VITALS: BP 135/85; PULSE 69; TEMP 36.6; O2SAT 99
[2016-07-01] MEDS ORDERED: OXYC-57 PO (07:48)
[2016-07-01] MEDS ORDERED: MTR600X PO (07:48)
--- NOTE | 2016-07-01 07:48 | Progress Note ---
Subjective July 01, 2016. Subjective conversation w/ patient, physical exam, chart review, lab review Ambulation: ambulating normally Voiding: no voiding problems Passing Gas: Yes Diet Tolerance: Regular Diet Lochia: Small Feeding Type: Breast Feeding Objective Vital Signs Date Time Temp Pulse Resp B/P Pulse Ox O2 Delivery O2 Flow Rate FiO2 06/30/16 23:35 36.6 63 18 129/76 Room Air 06/30/16 23:35 Room Air 06/30/16 15:30 36.4 71 20 121/78 Room Air 06/30/16 15:30 Room Air 06/30/16 08:05 36.7 71 16 136/87 96 Room Air 06/30/16 08:05 Room Air Physical Exam General Appearance: WELL-APPEARING Abdomen: non tender Fundus: Firm Incision Description: Clean, Dry & Intact Extremities: no calf tenderness Assessment and Plan Post-Op Day#: 3 Continue Routine Care: home
--- NOTE | 2016-07-01 07:49 | Discharge Instructions ---
Discharge Instructions Date of Service July 01, 2016. Admission Reason for Admission: TWINS Discharge Discharge Diagnosis / Problem: twins Discharge Goals Goal(s): Routine recovery after Activity Recommendations Activity Limitations: per Instructions/Follow-up section . Instructions / Follow-Up Instructions / Follow-Up ACTIVITY RECOMMENDATIONS: * Gradual return to full activity over the next 2-3 weeks. * No lifting - nothing heavier than baby over the next 2-3 weeks. * Do not engage in vigorous exercise, sexual activity or sports until cleared by your physician. * Do not drive or operate any motorized equipment until cleared by your physician. * You may shower/bathe daily. MEDICATIONS: For discomfort or pain, you may use Acetaminophen (Tylenol), Ibuprofen (Advil), or Naproxen (Aleve) following the package directions. For constipation you may use Colace following the package directions. BREAST CARE: If you are not breast feeding: * Wear a supportive bra 24 hours a day for one to two weeks. * Avoid stimulating your breasts and nipples as much as possible during the first few weeks after delivery. * When taking a shower, have the warm water hit your back, not breasts. * When your breasts feel full, apply ice packs. Usually three to four times a day helps ease the discomfort. * Take a mild pain medication (Tylenol / Motrin) when you are uncomfortable. If breast feeding: * Use breast milk to lubricate nipples. Lansinoh cream may be used for sore nipples. You do not need to remove cream prior to breast feeding. If using a different brand of cream, check the label for directions regarding removal of cream prior to nursing. * Wear a supportive bra. * If having problems with breasts or breast feeding, call a apprenticeship consultant or your health care provider. SPECIAL CARE INSTRUCTIONS: When you are discharged from the hospital, it is important for you to follow the instructions listed below: * During the first week at home, you should be able to care for yourself and your baby. In addition, the usual light household activities are encouraged. * Limit your activities to the way you feel. Do not try to clean the house or move furniture. Be sensible. * If you actively engage in sports and have done so up until the time of your delivery, you may resume these activities as soon as you feel able. This may take up to one month or even longer. Use good judgment. * Continue to take your vitamins for at least six weeks after the of your baby. * Your diet need not be limited unless you were on a special diet before your delivery. Breast-feeding mothers need around 2500 calories per day and at least 64-80 ounces of fluid per day (8 to 10 glasses). * You should eat foods from the four major food groups. Crash diets or fad diets are to be avoided. Eating lean meats, fresh fruits and vegetables, low-fat dairy products, high fiber foods and a regular exercise program, will help you get back to your pre- weight without putting your health at risk. * Constipation is sometimes a problem after delivery. Take a mild laxative as needed. If breast feeding, Milk of Magnesia is acceptable to use. You may use a suppository or Fleets enema. * A daily shower or tub bath is suggested. Wash incision daily with warm soapy water and pat dry. It doesn't need to be covered unless drainage is present. * A bloody vaginal discharge will usually continue until around four weeks . A small amount of bleeding may continue for as long as six weeks. Vaginal discharge changes from the bright red bleeding after delivery to pink then brownish and finally yellowish-pink before becoming white and disappearing. * Bleeding may increase with activity. Your first period may come in 4-8 weeks. If you are breast feeding, your period may be delayed even longer. * [place] (sex) can begin whenever both you and your partner feel comfortable and do not have any form of genital infection. It is recommended that you wait at least six weeks for internal and external healing to occur. If you have questions, please talk to your health care practitioner. A condom should be used to prevent infection and . * Foreplay, gentle intercourse and lubrication is very important the first several times to prevent pain. A water-based lubricant such as K-Y jelly or Astroglide may be used. * If you have RH negative blood and your baby is RH positive, you will receive RHOGAM by injection prior to discharge. The nurse will give you a card to keep with you that has the date and place that you received RHOGAM after delivery. * During your care, you had a Rubella screen done to check for the presence of rubella antibodies in your blood. If your test was negative, you will receive a Rubella vaccine prior to discharge. This vaccine may cause a fever, soreness at the injection site and flu-like symptoms. If these symptoms persist, notify your health care practitioner. is not advised for one month after a Rubella vaccine. * Verbalizes understanding of car seat law as reviewed with patient nursing. * Car Seat hand-out given and reviewed with patient by nursing. * Shaken baby information reviewed with patient by nursing. Call you doctor if: * Heavy bleeding (saturating several pads an hour) or passing clots the size of your fist. * A fever >101 degrees F (38.3 degrees C) on two occasions four hours apart and /or chills. * Unusual pain in the pelvic or vaginal areas. * Call the doctor for any increased redness, drainage or swelling around the incision and any pain unrelieved by prescribed pain medication. * "Baby Blues" lasting longer than two weeks. If you have any questions or concerns, call your health care practitioner at . FOLLOW UP VISIT: * Please call the office at to schedule a 6 week examination. It is important you keep this appointment. It is important for you to make arrangements for either yearly or twice yearly check-ups thereafter. Current Hospital Diet Patient's current hospital diet: Regular OB Diet Discharge Diet Recommended Diet: Regular OB Diet Procedures Procedures Performed: PRIMARY CAESAREAN SECTION FOR TWIN GESTATION BABY [id number] BABY B [id number] Pending Studies Studies pending at discharge: no Medical Emergencies . Who to Call and When: Medical Emergencies: If at any time you feel your situation is an emergency, please call 911 immediately. . Non-Emergent Contact Non-Emergency issues call your: Sign Manufacturer . . "Provider Documentation" section prepared by Bill Ramos. . VTE Core Measure Inpt VTE Proph given/why not?: Denise Bright, SCD's
[2016-07-01] MEDS: PRENATAL VITAMIN TAB PO SCH (08:54)
[2016-07-01] MEDS: SIMETHICONE 80 MG CHEW PO SCH ×2 (08:55→12:41)
[2016-07-01] MEDS: OXYCODONE/ACETAMINOPHEN 5-325 TAB PO PRN (08:55)
--- NOTE | 2016-07-01 09:51 | DISCHARGE SUMMARY ---
ADMITTING DIAGNOSES: 1. Complicated at 36+ weeks' gestational age. 2. Twin gestation, breech vertex presentation. 3. Spontaneous rupture of membranes. ADMISSION HISTORY: The patient is a 36-year-old 1, para 0 with an EDC of 10 July at 38+ weeks gestational age, who is admitted with twin gestation with spontaneous rupture of membranes. The patient states her membranes ruptured approximately 2 hours prior to admission. She described the fluid as clear with subsequent onset of contractions. The patient had been scheduled for primary section later this morning for a twin gestation with a breech vertex presentation. The patient has been followed with a twin protocol, showing a strong interval growth on ultrasounds as well as reassuring testing. ADMISSION PHYSICAL EXAMINATION: GENERAL: Showed a gravid female in no acute distress. VITAL SIGNS: Blood pressure 120/70 and weight of 180 pounds. HEENT: Unremarkable. NECK: Supple. LUNGS: Clear. HEART: With a regular rhythm and rate. ABDOMEN: Gravid with positive heart tones x2. Total estimated weight of 10 pounds. PELVIC: Showed the cervix to be fingertip, 50% and -2 with gross rupture. EXTREMITIES: Showed +2 to +3 pitting edema. NEUROLOGIC: Grossly intact. ADMISSION LABORATORY VALUES: Showed an H\T\H of 11.2 and 33.5. HOSPITAL COURSE: With the rupture of membranes and active contractions, the patient was thought to be in early labor and as such, section was indicated. The patient was taken to the operating room, where she underwent the above listed procedures. Operative findings showed a viable twin gestation. Baby A was delivered from a annita breech presentation with Apgars of 8 and 9 and a weight of 6 pounds 5 ounces. Baby B was delivered from a vertex presentation with a weight of 6 pounds 7 ounces, Apgars of 8 and 9. Subserosal posterior fibroids were noted with normal appearing tubes and ovaries bilaterally. Postoperatively, the patient did well. Fitch catheter was removed on the first postoperative day. H\T\H came back at 9.1 and 27.3. By the 3rd postoperative day, the patient was ambulating without difficulty and tolerating a regular diet. She was discharged home with the routine discharge instructions and the prescriptions for the medications as listed as above. She will follow up in the office for postoperative check, but as always she has been instructed to call with any questions, problems or difficulties.
[2016-07-01 15:05] VITALS: BP_DIAS 85; PULSE 69; TEMP 36.6
== END 2016-07-01 15:20 | disposition home or self-care (01) | DRG 765 ==
LOC: C.LD 01:41 → C.OBG 06:38 → EDSTATUS 14:33
PROVIDERS: ADMIT Obstetrics & Gynecology; ATTEND Obstetrics & Gynecology
PROC: 10D00Z1 Extraction of Products of Conception, Low, Open Approach (ICD-10-PCS; principal; 2016-06-28 08:15)
DX: O32.1XX0 Maternal care for breech presentation, not applicable or unspecified (principal); O30.043 Twin pregnancy, dichorionic/diamniotic, third trimester; O75.82 Onset (spontaneous) of labor after 37 completed weeks of gestation but before 39 completed weeks gestation, with delivery by (planned) cesarean section; O34.13 Maternal care for benign tumor of corpus uteri, third trimester; D25.2 Subserosal leiomyoma of uterus; Z37.2 Twins, both liveborn; Z3A.38 38 weeks gestation of pregnancy

== ENCOUNTER → 2017-05-29 | Outpatient (CLI) | payer OTHER ==
[~2017-05-29] MED LIST changes: +MTR600X PO; +OXYC-57 PO
[2017-05-29 17:24] LABS: BASO % 0.2 %; BASO ABS # 0.01 K/uL (0-0.2); EOS % 0.8 %; EOS ABS # 0.05 K/uL (0-0.5); HEMOGLOBIN 12.3 g/dL (12.0-16.0); IG# 0.01 K/uL (0.00-0.02); LYMPH % 25.8 %; LYMPH ABS # 1.56 K/uL (1.2-3.4); MEAN CELL VOLUME 82.8 fL (80-100); MEAN CORPUSCULAR HEMOGLOBIN 28.3 pg (25-34); MEAN CORPUSCULAR HGB CONC 34.2 g/dl (32-36); MEAN PLATELET VOLUME 10.5 fL (7.4-10.4); MONO % 6.3 %; MONO ABS # 0.38 K/uL (0.11-0.59); NEUT % 66.7 %; NEUT ABS # 4.03 K/uL (1.4-6.5); PLATELET COUNT 242 K/uL (130-400); RED CELL DISTRIBUTION WIDTH CV 12.5 % (11.5-14.5); RED CELL DISTRIBUTION WIDTH SD 37.6 fL (36.4-46.3); WHITE BLOOD COUNT 6.04 K/uL (4.8-10.8)
== END | disposition home or self-care (01) ==
LOC: C.LAB1850 16:02
PROVIDERS: ATTEND Obstetrics & Gynecology
DX: O09.521 Supervision of elderly multigravida, first trimester (principal); Z3A.00 Weeks of gestation of pregnancy not specified

== ENCOUNTER → 2017-07-10 | Outpatient (CLI) | payer OTHER | END | disposition home or self-care (01) | LOC: C.LAB1850 16:34 | PROVIDERS: ATTEND Obstetrics & Gynecology | DX: O09.522 Supervision of elderly multigravida, second trimester (principal) ==

== ENCOUNTER → 2017-10-11 | Outpatient (CLI) | payer OTHER ==
[2017-10-11 14:15] LABS: HEMATOCRIT 30.9 % (37-47); HEMOGLOBIN 10.6 g/dL (12.0-16.0)
== END | disposition home or self-care (01) ==
LOC: C.LAB1850 12:53
PROVIDERS: ATTEND Obstetrics & Gynecology
DX: O09.523 Supervision of elderly multigravida, third trimester (principal); Z3A.00 Weeks of gestation of pregnancy not specified

== ENCOUNTER 2019-07-17 05:40 | Inpatient (IN) ==
--- NOTE | 2019-07-14 13:52 | History & Physical Report ---
Date of Service July 14, 2019 Assessment & Plan (1) Supervision of elderly multigravida: (2) Previous delivery affecting , antepartum: The risks, benefits, and alternatives to the surgery have been discussed. Mother benefits will be delivery of the infant, the risks are bleeding, infection, inadvertent injury to bowel or bladder, readmission or reoperation. Patient understands this permit has been signed she wishes to proceed. (3) Admission for sterilization: The risks, benefits, and alternatives of surgery have been discussed. While the benefits will be permanent surgical sterilization, risk are bleeding, infection, inadvertent injury to internal organs requiring additional surgery and treatment, regret, and failure of the procedure itself. Failure rate quoted at 1-3%. Patient understands, the permit been signed and she wishes to proceed. History of Present Illness Chief Complaint: Repeat section with tubal ligation Primary Care Provider: NO PCP The patient is a 39-year-old 3 para 2002, with an EDC of 23 July at 39 weeks gestational age who was admitted for repeat section with bilateral tubal ligation. Patient's EDC was established by LMP and confirmed by first-trimester ultrasound. The patient has had 2 previous sections. The patient has had a benign course. Laboratory values for the show blood type of O positive, antibody negative, rubella immune, hepatitis B negative, she had a negative cell free DNA screen, she had a-1 hour Glucola x2, negative 3rd trimester it strep culture. The patient adamantly desires no further childbearing capacity. She understands that there are reversible forms of contraception available and wishes to have a bilateral tubal ligation performed. Allergies Allergy/AdvReac Type Severity Reaction Status Date / Time codeine AdvReac Mild GI UPSET Verified 07/14/19 13:35 Home Medications Home Medications Medication Instructions Recorded Confirmed Type Multi 1 tab PO DAILY 12/12/17 07/14/19 History Patient History Medical History (Updated 07/14/19 @ 13:52 by Emil Ramon Jr, MD, FACOG) Advanced maternal age in multigravida hemorrhage WITH 2ND Varicella Surgical History (Updated 07/14/19 @ 13:39 by Patricia Vazquez RN) History of anesthesia reaction REQUIRES WARMING BLANKETS (SHIVERING ALL OVER) AND NAUSEA/VOMITTING History of section X 2 [place] teeth removed Social History (Updated 12/24/18 @ 15:13 by Bre Marquez) Preferred Language: Yoruba Communication Ability: Effective Performance Reporter Required: No Beliefs That Will Affect Care: None marital status: marital status details: Roberto Das (36) [phone] Current Living Situation: Family current occupational status: employed current occupation: Physician [employer] Feels Safe at Home: Yes Smoking Status: Never smoker Second Hand Exposure: No ; Hx Alcohol Use: No Hx Substance Use: No Physical Exam Constitutional: WD/WN, vitals as above Neck: trachea midline, no thyromegaly Respiratory: normal respiratory effort, lungs clear to auscultation Cardiovascular: RRR, no murmur, no edema Extremities: no calf tenderness Gastrointestinal (Abdomen): Gravid, vertex, (+) FHT's; EFW 8 lbs Skin: no lesions Psychiatric: A+Ox3, euthymic affect Genitourinary: deferred Lymphatic: no lymphadenopathy Coding Level of Care Code None Diagnoses Supervision of elderly multigravida O09.529 Previous delivery affecting , antepartum O34.219 Admission for sterilization Z30.2
--- NOTE | 2019-07-14 14:35 | Communication Note ---
Date of Service: July 14, 2019 Travel assessment/history reviewed - low risk at this time - will be reviewed the morning of surgery. No preop covid testing done.
[2019-07-17] MEDS ORDERED: SODIUM CHLORIDE 0.9% 250 ML IV PRN (05:44)
[2019-07-17] MEDS ORDERED: CITRIC ACID/SODIUM CITRATE 15 ML UDC PO SCH (06:00)
[2019-07-17] MEDS ORDERED: LACTATED RINGER'S 1,000 ML IV SCH ×2 (06:00→08:45)
[2019-07-17] MEDS ORDERED: CEFAZOLIN 2,000 MG in SYRINGE 0 ML IV SCH (06:00)
[2019-07-17 06:36] LABS: Basophils # (auto) 0.02 K/uL (0-0.2); Basophils % (auto) 0.2 %; Eosinophils # (auto) 0.05 K/uL (0-0.5); Eosinophils % (auto) 0.6 %; Hemoglobin 10.4 g/dL (12.0-16.0); Immature Granulocytes # (auto) 0.04 K/uL (0.00-0.02); Immature Granulocytes % (auto) 0.5 %; Lymphocytes # (auto) 1.85 K/uL (1.2-3.4); Lymphocytes % (auto) 22.8 %; Mean Corpuscular Hemoglobin 27.7 pg (25-34); Mean Corpuscular Volume 82.4 fL (80-100); Monocytes # (auto) 0.53 K/uL (0.11-0.59); Monocytes % (auto) 6.5 %; Neutrophils # (auto) 5.62 K/uL (1.4-6.5); Neutrophils % (auto) 69.4 %; Platelet Count 183 K/uL (130-400); RDW Coefficient of Variation 12.8 % (11.5-14.5); RDW Standard Deviation 38.1 fL (36.4-46.3); Red Blood Count 3.76 M/uL (4.2-5.4); White Blood Count 8.11 K/uL (4.8-10.8)
[2019-07-17 06:50] LABS: Mean Corpuscular Hgb Conc 33.5 g/dL (32-36)
--- NOTE | 2019-07-17 07:13 | History & Physical Bridge Note ---
Date of Service July 17, 2019 History & Physical Bridge Note I have examined the patient, reviewed the History & Physical and in the interval since the performance of the History & Physical I have noted the following changes of clinical significance: no changes noted
--- NOTE | 2019-07-17 07:23 | Anesthesiology Consultation ---
Date of Service July 17, 2019 Assessment & Plan Chart Review Chart Review: Acceptable Risk for Surgery and Patient NOT seen in Pre Admission Testing Consults Requested none ASA ASA2 Proposed Anesthesia Anesthesia Type: Spinal Risk / Benefits Reviewed With: PT / POA / Parent / Guardian, Accepts Plan and Informed Consent Obtained Additional Comments: no s/sx's of covid History Surgery Operation Date: 07/17/19 07:30 Proposed Procedures p Section - Emil Ramon Jr, MD, FACOG s with Bilateral Tubal Ligation - Emil Ramon Jr, MD, FACOG Height/Weight Height: 5 ft 6 in Weight: 77.111 kg Allergies Allergy/AdvReac Type Severity Reaction Status Date / Time codeine AdvReac Mild GI UPSET Verified 07/14/19 13:35 Medications Home Medications Medication Instructions Recorded Confirmed Last Taken Multi 1 tab PO DAILY 12/12/17 07/17/19 07/16/19 08:00 NPO Date Last Intake of Fluids: 07/16/19 Time Last Intake of Fluids: 21:00 Date Last Intake of Solids: 07/16/19 Time Last Intake of Solids: 15:00 Past Medical History Medical History Advanced maternal age in multigravida hemorrhage WITH 2ND Varicella Exercise / Class Metabolic Activity II 4-5 Yardwork/Stairs/Walk up hill Past Family History Family History Grandmother No problems noted. Grandfather No problems noted. Grandfather (Maternal) Diabetes Grandmother (Paternal) Diabetes Heart disease Grandfather (Paternal) Heart disease Father Hypertension Bicuspid aortic valve Mother Hypertension Breast cancer Past Surgical History Surgical History History of anesthesia reaction REQUIRES WARMING BLANKETS (SHIVERING ALL OVER) AND NAUSEA/VOMITTING History of section X 2 [place] teeth removed Past Anesthesia History No Hx of Anesthesia Complications and No Family Hx of Anesthesia Complications History of PONV No Hx of PONV and No Hx of Motion Sickness Social History Smoking Status: Never smoker Do You Dip or Chew Tobacco: No Hx Alcohol Use: No Hx Substance Use: No substance use type: does not use Physical Exam Vital Signs Last Vital Signs Temp 36.5 C 07/17/19 05:54 Pulse 88 07/17/19 05:50 Resp 16 07/17/19 05:54 BP 113/66 07/17/19 05:50 Constitutional + obese ENMT Mouth: no dentition abnormality Thyromental Distance: < 3.5 Finger Breadths Mallampati Class: II Neck normal visual inspection and trachea midline; neck extension not limited Respiratory normal respiratory effort Auscultation: lungs clear to auscultation bilaterally Cardiovascular Rate/Rhythm: regular rate and regular rhythm Heart Sounds: no murmur Vessels: no carotid bruit Musculoskeletal Spine: lumbar spine normal to inspection; normal cervical ROM Extremities: extremities normal to inspection Neurologic moves all extremities Motor/Sensory: no sensory deficit Psychiatric Orientation: alert and oriented x 3 Testing Laboratory Results 07/17/19 06:24
[2019-07-17] MEDS ORDERED: fentaNYL citrate 100 MCG/2 ML VIAL ONE (07:28)
[2019-07-17] MEDS ORDERED: MoRPHine SULFATE PF 1 MG/ML 10 ML AMP/VIAL ONE (07:28)
[2019-07-17] MEDS ORDERED: OXYTOCIN 10 UNITS/ML VIAL ONE (07:29)
[2019-07-17] MEDS ORDERED: ePHEDrine sulfate 50 MG/ML SYR ONE (08:16)
[2019-07-17] MEDS ORDERED: PHENYLEPHRINE 100MCG/ML 5ML SYR ONE (08:17)
[2019-07-17] MEDS ORDERED: ONDANSETRON INJ 2 MG/ML 2 ML VIAL ONE (08:28)
[2019-07-17] MEDS ORDERED: DEXAMETHASONE SOD INJ 4 MG/ML VIAL ONE (08:31)
[2019-07-17] MEDS ORDERED: SUPERCREAM 0.870% 15 GM JAR EXT PRN (08:35)
[2019-07-17] MEDS ORDERED: DIPHTHERIA/TETANUS/PERTUSSIS 0.5 ML SYR/VIAL IM ONE (08:35)
[2019-07-17] MEDS ORDERED: BENZOCAINE 20% AER SPR 82.5 GM CAN EXT PRN (08:35)
[2019-07-17] MEDS ORDERED: SENNA 8.6 MG TAB PO PRN (08:35)
[2019-07-17] MEDS ORDERED: MAGNESIUM HYDROXIDE SUSP 30 ML UDC PO PRN (08:35)
[2019-07-17] MEDS ORDERED: HYDROCORTISONE ACETATE 25 MG SUPP PR PRN (08:35)
[2019-07-17 08:49] LABS: Base Excess Cord Venous Blood -1.9 mEq/L (-7.7-1.9); Cord Venous Blood HCO3 24 mmol/L (18.4-26.8); Cord Venous Blood PCO2 44 mmHg (30.4-57.2); Cord Venous Blood PO2 26 mmHg (14.1-43.3); Cord Venous Blood pH 7.35 (7.20-7.44)
[2019-07-17 08:51] LABS: O2 Saturation Cord Venous Bld < 60.0 % (<68)
--- NOTE | 2019-07-17 08:51 | Post Operative Brief Note ---
PG Immediate Post Op with CF Date of Surgery July 17, 2019 Pre & Post Diagnosis Operation Date: 07/17/19 07:30 Pre-Op Diagnosis: 1. Term 2. Previous Caesarean Section 3. Desires Surgical Sterilization Post-Op Diagnosis: Same I identified the patient and participated in the time-out.: Yes Procedure Operation Date: 07/17/19 07:30 Actual Procedures p Section in LD; Bilateral Tubal Ligation, Repeat Lower Uterine Transevere Caesarean Section for the of a live boy infant(Bilateral) - Emil Ramon Jr, MD, FACOG Surgeon Emil Ramon Jr, MD, FACOG Medical Associate [place] Estimated Blood Loss 800 Findings See Below (viable male, Apgars 8/9; weight 7lbs 6 ozs, nml appearing tubes and ovaries bilaterally; bilateral tubal ligation) Specimens Specimen Description: 1. Placenta: 2. Cord Blood Obtained 3. Venous and Arterial Cord Blood Gases Obtained 4. Portions of Right and Left Fallopian Tubes Drains Fitch Catheter
[2019-07-17 08:53] LABS: Base Excess Cord Arterial Bld -3.6 mEq/L (-9-1.8); CO2 Cord Arterial Blood 51 mmHg (39.1-73.5); HCO3 Cord Arterial Blood 24 mmol/L (19.7-28.5); Oxygen Sat Cord Arterial Blood < 60.0 % (<60); PO2 Cord Arterial Blood 19 mmHg (4.1-31.7); pH Cord Arterial Blood 7.29 (7.1-7.38)
[2019-07-17] MEDS ORDERED: NALOXONE HCL 0.4 MG/1 ML VIAL/CARP IV PRN (08:59)
[2019-07-17] MEDS ORDERED: ONDANSETRON INJ 2 MG/ML 2 ML VIAL IV PRN (08:59)
[2019-07-17] MEDS ORDERED: MoRPHine SULFATE PF 1 MG/ML 10 ML AMP/VIAL INT SPINAL ONE (08:59)
[2019-07-17] MEDS ORDERED: ePHEDrine sulfate 50 MG/ML AMP IV PRN (08:59)
[2019-07-17] MEDS ORDERED: NALOXONE HCL 0.08 MG in SYRINGE 1.8 ML IV PRN (08:59)
[2019-07-17] MEDS ORDERED: NALOXONE HCL 1 MG in SODIUM CHLORIDE 0.9% 1000ML 1,000 ML IV PRN (08:59)
[2019-07-17] MEDS ORDERED: NALBUPHINE HCL INJ 10 MG/ML AMP IV PRN (08:59)
[2019-07-17] MEDS ORDERED: LACTATED RINGER'S 500 ML IV PRN (08:59)
[2019-07-17] MEDS ORDERED: DiphenhydrAMINE HCL 50 MG/ML VIAL IV PRN (08:59)
[2019-07-17] MEDS ORDERED: PROMETHAZINE HCL 25 MG in SODIUM CHLORIDE 0.9% 50 ML IV PRN (08:59)
[2019-07-17] MEDS ORDERED: NO NARCOTICS OR SEDATIVES SCH (09:00)
[2019-07-17] MEDS ORDERED: SODIUM CHLORIDE 0.9% 1000ML 1,000 ML IV SCH (09:00)
[2019-07-17] MEDS ORDERED: DC INTRASPINAL MORPHINE SCH (09:00)
[2019-07-17] MEDS: OXYTOCIN 20 UNITS in LACTATED RINGER'S 1,000 ML IV SCH ×2 (09:24→17:22)
--- NOTE | 2019-07-17 09:40 | Anesthesiology Progress Note ---
Date of Service July 17, 2019 Anesthesia Post Procedure Vital Signs Vital Signs: Temp Pulse Resp BP Pulse Ox 07/17/19 09:37 83 95 07/17/19 09:36 48 L 116/53 L 07/17/19 09:32 88 95 07/17/19 09:27 79 94 07/17/19 09:26 90 93 07/17/19 09:25 80 103/56 L 07/17/19 09:22 88 96 07/17/19 09:17 80 95 07/17/19 09:16 85 110/66 07/17/19 09:12 81 97 07/17/19 09:07 87 95 07/17/19 09:03 73 94 07/17/19 09:02 68 109/58 L 96 07/17/19 05:54 36.5 C 16 07/17/19 05:50 36.5 C 88 16 113/66 Transfer of Care Handoff Completed per policy Notes Mental Status: alert / awake / arousable Patient Amnestic to Procedure: Yes Nausea / Vomiting: adequately controlled Pain: adequately controlled Airway Patency, RR, SpO2: stable & adequate BP & HR: stable & adequate Hydration State: stable & adequate Neuraxial Anesthesia: was administered and sensory block is resolving Anesthetic Complications: no major complications apparent
[2019-07-17] MEDS: KETOROLAC 30 MG/ML VIAL IV PRN ×2 (12:02→17:50)
[2019-07-17] MEDS: SIMETHICONE 80 MG CHEW PO SCH ×3 (12:17→20:47)
--- NOTE | 2019-07-17 12:34 | Operative Report (OR) ---
DATE OF OPERATION: 07/17/2019 PREOPERATIVE DIAGNOSES: 1. Term . 2. Previous section. 3. Desired permanent surgical sterilization. POSTOPERATIVE DIAGNOSES: 1. Term . 2. Previous section. 3. Desired permanent surgical sterilization. PROCEDURE PERFORMED: Repeat low cervical transverse section. SURGEON: Dr. Emil Ramon. ELECTRONICS UTILITY WORKER: Dr. Rosalva Wahl. ANESTHESIA: Spinal. FINDINGS: Viable male with Apgars of 8 and 9, weight of 7 pounds 6 ounces, normal-appearing tubes and ovaries bilaterally. Bilateral segment of fallopian tubes removed for permanent surgical sterilization. PROCEDURE IN DETAIL: The patient was taken to the operating room and after spinal anesthesia, was placed in supine position and draped and prepped in the usual fashion. Previous surgical scar was excised and removed from the incision. Underlying subcutaneous tissue was dissected down to the ventral abdominal fascia, which was nicked and opened in a horizontal manner. Preperitoneal fascia was dissected away until the peritoneal cavity was entered and opened in a vertical manner. Bladder blade was placed. The peritoneum overlying the uterus was elevated, opened in a semi-lunar fashion, the inferior margin of which was taken down creating the bladder flap. The uterus was entered sharply and extended in a semilunar fashion manually. Viable male infant was delivered. Cord was clamped and cut, and the baby was passed off to pediatrics who was in attendance for the delivery. Cord gases and cord blood samples were obtained. The uterus was exteriorized and the placenta was delivered spontaneously. The uterine cavity was wiped clean of any residual blood tissue and/or clot. The uterine incision was then closed with 2 layers of 4-0 Vicryl, the first was a running locking stitch and the second was an imbricating stitch. Hemostasis was present. The right fallopian tube was isolated and followed to the fimbriated end, a segment of which was elevated, doubly ligated with 0 plain suture, cut and removed from the field. In a similar fashion, the left fallopian tube was isolated and followed to the fimbriated end, a segment of which was elevated, doubly ligated with 0 plain suture, cut and removed from the field. Hemostasis was present on both tubal excisions spots. Uterus was returned to the pelvic cavity. The pericolic gutters were cleared bilaterally of any blood tissue and/or clot. The pelvis was thoroughly irrigated with 1000 mL of warm saline and removed. Uterine incision was inspected for hemostasis again, which was present. Both tubal stumps were isolated and visualized bilaterally and hemostasis was present. Sponge and needle count was correct. The rectus muscle was then plicated in the midline with a running 2-0 Vicryl stitch. The fascia was closed laterally with a running 0 Vicryl suture. The subcutaneous tissue was irrigated with warm saline. The skin incision was closed with interrupted 4-0 Monocryl vertical mattress sutures. Steri-Strips were placed across the incision. The patient was taken out of dorsal lithotomy and to recovery room in satisfactory condition. I attest to the content of the Intraoperative Record and any orders documented therein. Any exception s are noted below.
--- NOTE | 2019-07-17 20:42 | Communication Note ---
Date of Service: July 17, 2019 Pt had norothermia intraop. P/op pt had temp of 34.8, w/ multiple attempts. Pt most likely had intrathecal morphine induced mild hypothermia which resolved w/o incident.
[2019-07-17] MEDS: DOCUSATE SODIUM 100 MG CAP PO SCH (20:46)
[2019-07-18] MEDS: KETOROLAC 30 MG/ML VIAL IV PRN (02:56)
[2019-07-18] MEDS ORDERED: MEPERIDINE HCL 50 MG/ML CARP IV PRN (03:01)
[2019-07-18] MEDS ORDERED: PROMETHAZINE HCL 25 MG in SODIUM CHLORIDE 0.9% 50 ML IV PRN (03:01)
[2019-07-18] MEDS ORDERED: DiphenhydrAMINE HCL 50 MG/ML VIAL IV PRN (03:01)
[2019-07-18] MEDS ORDERED: KETOROLAC 30 MG/ML VIAL IV PRN (03:01)
[2019-07-18] MEDS ORDERED: ONDANSETRON INJ 2 MG/ML 2 ML VIAL IV PRN (03:01)
[2019-07-18 06:23] LABS: Basophils # (auto) 0.01 K/uL (0-0.2); Basophils % (auto) 0.1 %; Eosinophils # (auto) 0.04 K/uL (0-0.5); Eosinophils % (auto) 0.4 %; Hematocrit (blood only) 27.5 % (37-47); Immature Granulocytes # (auto) 0.05 K/uL (0.00-0.02); Immature Granulocytes % (auto) 0.5 %; Lymphocytes # (auto) 1.94 K/uL (1.2-3.4); Lymphocytes % (auto) 18.8 %; Mean Corpuscular Hemoglobin 27.2 pg (25-34); Mean Corpuscular Hgb Conc 32.7 g/dL (32-36); Mean Corpuscular Volume 83.1 fL (80-100); Mean Platelet Volume 10.5 fL (7.4-10.4); Monocytes # (auto) 0.74 K/uL (0.11-0.59); Monocytes % (auto) 7.2 %; Neutrophils # (auto) 7.52 K/uL (1.4-6.5); Platelet Count 190 K/uL (130-400); RDW Coefficient of Variation 12.9 % (11.5-14.5); RDW Standard Deviation 39.1 fL (36.4-46.3); Red Blood Count 3.31 M/uL (4.2-5.4)
--- NOTE | 2019-07-18 06:37 | Obstetrical Progress Note ---
Date of Service July 18, 2019 Assessment & Plan Admission and Anticipated Discharge Date Admission Date: July 17, 2019 39 yo s/p rCS BTL @ 39 weeks POD #1 complicated by elderly multigravida -POD#1 - GBS -, Blood Type O+ - Feels well today. Eating well, voiding well, ambulating well. - Pain well controlled . - Routine postoperative care - After discharge will have 6 week followup. Supervising Physician Co-Signing Physician Notes Dressing removed by attending MD. No active bleeding, steri strips mostly still white / not blood stained, incision well approximated. Routine postop care today. Subjective Doing well pain 2-3/10 drinking fluid without nausea. She is and feels this is going, "well". Review of Systems Review of Systems: Denies fever, chills, sweats Denies shortness of breath, difficulty breathing, chest pain, palpitations, chest pressure. Denies breast pain. Denies dysuria. Denies headache. Physical Exam Physical Exam: General: Alert, oriented. No acute distress. Cardiac: Regular rate and rhythm, no murmurs/rubs/gallops. Respiratory: Clear to auscultation anterior and posteriorly, no wheezes/rales/rhonchi. No increased work of breathing. Symmetrical chest rise. No respiratory distress. Abdomen: Soft, nontender, nondistended. Bowel sounds present. Uterus: Uterine fundus firm, palpable 2 cm below umbilicus. Lower Extremities: No lower extremity edema or swelling. No deep calf pain. Holly's negative bilaterally. surgical incision intact, clean, dry. No warmth, erythema, discharge, or dehiscence. Results & Data ([facility]) Vital Signs (Past 12 Hours) Vital Signs Temp Pulse Resp BP Pulse Ox 07/18/19 02:40 36.5 C 61 18 95/54 L 98 07/18/19 01:40 16 96 07/18/19 00:40 16 95 07/17/19 23:25 36.5 C 70 16 96/56 L 96 07/17/19 21:40 16 97 07/17/19 20:40 18 98 07/17/19 19:40 36.7 C 67 16 96/55 L 97 07/17/19 18:40 16 94 Resident Activity Tracking Resident Involvement: Resident Care Provided Care Provided: OB Delivery
[2019-07-18] MEDS: IBUPROFEN 600 MG TAB PO PRN ×3 (08:41→19:19)
[2019-07-18] MEDS: FERROUS SULFATE 325 MG TAB PO SCH (08:41)
[2019-07-18] MEDS: SIMETHICONE 80 MG CHEW PO SCH ×4 (08:41→20:10)
[2019-07-18] MEDS: DOCUSATE SODIUM 100 MG CAP PO SCH ×2 (08:41→20:10)
[2019-07-18] MEDS: PRENATAL VITAMIN 1 TAB PO SCH (08:41)
--- NOTE | 2019-07-18 10:36 | Anesthesiology Progress Note ---
Date of Service July 18, 2019 Anesthesia Post Procedure Vital Signs Vital Signs: Temp Pulse Pulse Resp BP BP Pulse Ox 07/18/19 07:05 36.6 C 72 16 104/68 98 07/18/19 02:40 36.5 C 61 18 95/54 L 98 07/18/19 01:40 16 96 07/18/19 00:40 16 95 07/17/19 23:25 36.5 C 70 16 96/56 L 96 07/17/19 21:40 16 97 07/17/19 20:40 18 98 07/17/19 19:40 36.7 C 67 16 96/55 L 97 07/17/19 18:40 16 94 07/17/19 17:40 18 97 07/17/19 16:40 16 98 07/17/19 15:55 36.6 C 71 16 103/62 97 07/17/19 15:40 16 97 07/17/19 14:30 16 96 07/17/19 13:30 16 96 07/17/19 12:15 79 16 110/67 96 07/17/19 11:15 36.4 C L 74 16 120/70 97 07/17/19 11:07 83 96 07/17/19 11:05 36.4 C L 78 20 123/65 07/17/19 11:02 79 95 07/17/19 10:57 84 96 07/17/19 10:55 81 123/66 07/17/19 10:52 86 95 07/17/19 10:47 96 H 95 07/17/19 10:45 98 H 123/63 07/17/19 10:42 71 93 07/17/19 10:37 75 95 Pain Intensity Bilateral Abdomen: Pain Intensity: 5 Transfer of Care Handoff Completed per policy Notes Mental Status: alert / awake / arousable and participated in evaluation Patient Amnestic to Procedure: Yes Nausea / Vomiting: adequately controlled Pain: adequately controlled Airway Patency, RR, SpO2: stable & adequate BP & HR: stable & adequate Hydration State: stable & adequate Anesthetic Complications: no major complications apparent and Pt Satisfied with anesthetic care
[2019-07-18] MEDS: OXYCODONE/ACETAMINOPHEN 5mg/325mg TAB PO PRN (19:19)
[2019-07-18] MEDS ORDERED: bisacodyL 5 MG TABEC PO SCH (20:00)
[2019-07-19] MEDS: IBUPROFEN 600 MG TAB PO PRN ×3 (00:12→11:04)
[2019-07-19] MEDS: OXYCODONE/ACETAMINOPHEN 5mg/325mg TAB PO PRN (00:13)
[2019-07-19 06:56] LABS: Hematocrit (blood only) 29.9 % (37-47); Hemoglobin 9.7 g/dL (12.0-16.0)
--- NOTE | 2019-07-19 08:29 | Obstetrical Progress Note ---
Date of Service July 19, 2019 Assessment & Plan (1) Encounter for care and examination after delivery: stable post-op & course wishes to be discharged scripts for percocet & motrin sent to pharmacy follow up in 2 weeks for incison check as planned Subjective Ambulation: ambulating normally Voiding: no voiding problems Passing Gas:: Yes Diet Tolerance:: regular diet Lochia:: Small Feeding Type:: breast feeding Review of Systems All systems reviewed & are unremarkable except as noted in HPI & below Physical Exam Constitutional WD/WN, vitals as above Gastrointestinal (Abdomen) normal bowel sounds, soft, nontender, no hepatosplenomegaly Inspection/Auscultation: + abdominal surgical incision (intact & dry, ecchymosis superiorly) Psychiatric A+Ox3, euthymic affect Genitourinary OB Exam Abdomen: + fundal height Fundus: + firm and + relation to umbilicus (2 below U) Results & Data Vital Signs (Past 12 Hours) Vital Signs Temp Pulse Resp BP 07/19/19 07:14 97.5 F L 73 16 120/82 07/18/19 23:45 97.9 F 91 H 18 113/71
[2019-07-19] MEDS: FERROUS SULFATE 325 MG TAB PO SCH (08:35)
[2019-07-19] MEDS: DOCUSATE SODIUM 100 MG CAP PO SCH (08:35)
[2019-07-19] MEDS: SIMETHICONE 80 MG CHEW PO SCH (08:35)
[2019-07-19] MEDS: PRENATAL VITAMIN 1 TAB PO SCH (08:35)
--- NOTE | 2019-07-20 12:16 | Discharge Summary ---
Date of Service July 20, 2019 Admission HPI Per Admitting Provider The patient is a 39-year-old 3 para 2002, with an EDC of 23 July at 39 weeks gestational age who was admitted for repeat section with bilateral tubal ligation. Patient's EDC was established by LMP and confirmed by first-trimester ultrasound. The patient has had 2 previous sections. The patient has had a benign course. Laboratory values for the show blood type of O positive, antibody negative, rubella immune, hepatitis B negative, she had a negative cell free DNA screen, she had a-1 hour Glucola x2, negative 3rd trimester it strep culture. The patient adamantly desires no further childbearing capacity. She understands that there are reversible forms of contraception available and wishes to have a bilateral tubal ligation performed. Discharge Data Consultations 07/17/19 05:41 Consult Anesthesiology Stat Procedures Performed Operation Date: 07/17/19 07:30 Actual Procedures p Section in LD; Bilateral Tubal Ligation, Repeat Lower Uterine Transevere Caesarean Section for the of a live boy infant(Bilateral) - Emil Ramon Jr, MD, [facility] Course (1) Previous delivery affecting , antepartum: On day of admission the patient was taken to the OR where she underwent the above listed procedures. She delivered a viable male infant, and had a bilateral tubal ligation. Postoperatively the patient did well. The Fitch catheter was removed on POD #1. Her H/H was stable. The patient requested d/c home on POD #2. She was d/c'd with the Rx's listed and was given the routine d/c instructions. She will follow up in 2 weeks time for a post-op check, but as always she was instructed to call with any questions, problems or difficulties, Coding Level of Care Code None Diagnoses Previous delivery affecting , antepartum O34.219
== END 2019-07-19 11:55 | disposition home or self-care (01) | DRG 785 ==
LOC: 4S1 05:40 → EDSTATUS 07:30 → 4S2 11:59
PROC: M.PPTLD (2019-07-17 07:30)